=== PATIENT | female | born 1955 | race Caucasian/White ===

== ENCOUNTER 2016-08-15 09:34 | Emergency (ER) | payer BC ==
[~2016-08-15] VITALS: Ht 162.6 cm; Wt 117.9 kg
--- NOTE | 2016-08-15 09:50 | PHYS DOC ---
General Chief Complaint: KNEE INJURY Stated Complaint: FALL, RIGHT LEG INJURY Time Seen by MD: 09:37 Source: patient Exam Limitations: no limitations Problems: History of Present Illness Initial Comments Pt is 60/F to ED c/o right knee pain. Pt visiting from [place] for , yesterday stepped out of a cargo van awkwardly at same time door swung shut. Pt fell experiencing severe right knee pain. Unable to bear weight since then, was seen outpt at [place] today Xrays indicated questionable findings recommended CT evaluation. Pt here for further evaluation, no numbness/tingling/weakness/radiating symptoms. Pain diffuse knee , severe, worse with movement some relief with rest. No other injury from fall. Xray report from this am reviewed. Onset: yesterday Severity: severe Pain/Injury Location: right knee Method of Injury: fell Modifying Factors: worse with jarring, worse with movement, improves with rest Allergies: Coded Allergies: No Known Drug Allergies (Unverified , 08/15/16) Past Medical History Medical History: other (DM, HLP, HTN) Surgical History: noncontributory Social History Smoker: non-smoker Alcohol: none Drugs: none Review of Systems Constitutional: denies chills, denies fever Respiratory: denies cough, denies shortness of breath Cardiovascular: denies chest pain, denies palpitations Gastrointestinal: denies nausea, denies vomiting Musculoskeletal: see HPI Psychiatric/Neurological: see HPI Physical Exam General Appearance: no apparent distress, obese HEENT: PERRL/EOMI, normal ENT inspection Neck: full range of motion, supple Cardiovascular/Respiratory: normal peripheral pulses, no respiratory distress Back: no CVA tenderness, no vertebral tenderness Knees: left knee non-tender, left knee normal inspection, left knee normal range of motion, left knee no evidence of injury, right knee bone tenderness, right knee joint effusion, right knee pain, right knee soft tissue tenderness, right knee swelling Neurologic/Tendon: normal sensation, normal motor functions, normal tendon functions, responds to pain, no evidence tendon injury Psychiatric: alert, oriented x 3 Skin: normal color, warm/dry Orders, Labs, Meds PATIENT: CORBIN THAPA ACCOUNT: [id number] : 1955 LOCATION: [facility] AGE: 60 SEX: F EXAM STATUS: REG CLI ORD. PHYSICIAN: DYAN MURPHY MD REASON: RIGHT KNEE PAIN,FALL X 1 DAY PROCEDURE: KNEE RIGHT 3V Exam performed: 3 views right knee. History: Right knee pain status post fall one day ago. Date of service: 08/15/16. Comparison: None available Findings: AP, lateral and oblique view of the right knee are obtained. Normal alignment of the medial and lateral tibiofemoral joint is preserved. There is narrowing of the patellofemoral joint. Questionable cortical offset is seen in the medial tibial plateau. Mild osteophytic spurring is seen in the articular surface of patella. Small suprapatellar joint effusion is noted. Impression: Questionable cortical offset in the medial tibial plateau with a small suprapatellar joint effusion. A small fracture cannot be excluded. Evaluation with CT or MRI of the right knee may be of additional benefit. DICTATED AND SIGNED BY: DON LOVE MD DATE: 08/15/16 0813 CC: DYAN MURPHY MD ~ PATIENT: ELIZABETH THAPA ACCOUNT: [id number] : 1955 LOCATION: ER AGE: 60 SEX: F EXAM STATUS: PRE ER ORD. PHYSICIAN: MARNI CARIAS DO REASON: R knee trauma/pain, poss fx plain films PROCEDURE: CT LOWER EXTREMITY WO RIGHT Exam performed: CT right knee without contrast. History: Right knee pain, status post fall. Date of service: 08/15/16. Comparison: X-ray right knee from earlier today. Technique: Contiguous helical acquisitions are obtained through the right knee without IV contrast. Sagittal and coronal reformatted images are obtained and reviewed. Findings: There is a nondisplaced fracture lateral tibial plateau. Note is made that this was not definitely identified on the recent x-ray. The medial and lateral tibiofemoral as well as the patellofemoral joint compartment appears preserved. Small joint effusion. No intramuscular hematoma or abnormal fluid collection is seen. Impression: Nondisplaced lateral tibial plateau fracture with a small suprapatellar joint effusion. DICTATED AND SIGNED BY: DON LOVE MD DATE: 08/15/16 1106 CC: MARIN CARIAS DO ~ Discussed results with pt, she expressed agreement/understanding. RLE NV intact after immobilizer placed. Departure Time of Disposition: 11:28 Disposition: 01 HOME, SELF-CARE Diagnosis: Nondisplaced right tibial plateau fracture Condition: STABLE Patient Instructions: Knee Fracture, Adult, Knee Immobilizer, [id number], RICE - Routine Care for Injuries, [id number] Additional Instructions: RICE, see handout. Nonweight bearing crutches only. Wear knee immobilizer when up and active. Rx: naprosyn, norco 5mg #20 Take meds with food. You will need to follow up with your doctor upon returning home. You will need a referral to see Orthopedics. Follow up with your doctor next available. Return to ED with new or changing symptoms. MARNI CARIAS DO August 15, 2016 09:50
--- NOTE | 2016-08-15 11:10 | RAD ---
Exam performed: CT right knee without contrast. History: Right knee pain, status post fall. Date of service: 08/15/16. Comparison: X-ray right knee from earlier today. Technique: Contiguous helical acquisitions are obtained through the right knee without IV contrast. Sagittal and coronal reformatted images are obtained and reviewed. Findings: There is a nondisplaced fracture lateral tibial plateau. Note is made that this was not definitely identified on the recent x-ray. The medial and lateral tibiofemoral as well as the patellofemoral joint compartment appears preserved. Small joint effusion. No intramuscular hematoma or abnormal fluid collection is seen. Impression: Nondisplaced lateral tibial plateau fracture with a small suprapatellar joint effusion.
[2016-08-15] MEDS ORDERED: NAPR500T PO (11:32)
[2016-08-15] MEDS ORDERED: HYDR-971 PO (11:32)
[2016-08-15] MEDS ORDERED: HYDROcodone/APAP 7.5/325MG 1 TAB TABLET ONE (11:35)
[2016-08-15 11:57] VITALS: BP 137/89
[2016-08-15] MEDS ORDERED: HYDROcodone/APAP 7.5/325MG 1 TAB TABLET PO ONE (12:00)
[2016-08-15] MEDS ORDERED: ONDANSETRON ODT 4 MG TAB.RAPDIS PO ONE (12:00)
== END 2016-08-15 11:58 | disposition home or self-care (01) ==
LOC: ER 09:34
DX: S82.144A Nondisplaced bicondylar fracture of right tibia, initial encounter for closed fracture (principal); E11.9 Type 2 diabetes mellitus without complications; I10 Essential (primary) hypertension; E03.9 Hypothyroidism, unspecified; W23.0XXA Caught, crushed, jammed, or pinched between moving objects, initial encounter; Y93.89 Activity, other specified; Y99.8 Other external cause status; Y92.89 Other specified places as the place of occurrence of the external cause
CPT/HCPCS: 29505; 73700; 99284; Q0162

== ENCOUNTER → 2016-08-15 | Outpatient (CLI) | payer BC ==
[~2016-08-15] MED LIST: HYDR-971 PO; NAPR500T PO
--- NOTE | 2016-08-15 08:20 | RAD ---
Exam performed: 3 views right knee. History: Right knee pain status post fall one day ago. Date of service: 08/15/16. Comparison: None available Findings: AP, lateral and oblique view of the right knee are obtained. Normal alignment of the medial and lateral tibiofemoral joint is preserved. There is narrowing of the patellofemoral joint. Questionable cortical offset is seen in the medial tibial plateau. Mild osteophytic spurring is seen in the articular surface of patella. Small suprapatellar joint effusion is noted. Impression: Questionable cortical offset in the medial tibial plateau with a small suprapatellar joint effusion. A small fracture cannot be excluded. Evaluation with CT or MRI of the right knee may be of additional benefit.
== END | disposition home or self-care (01) ==
LOC: DXRADRC 07:50
PROVIDERS: ATTEND Family Medicine
DX: M25.461 Effusion, right knee (principal)
CPT/HCPCS: 73562